=== PATIENT | male | born 1940 | race Caucasian/White ===

== ENCOUNTER → 2024-01-29 | Outpatient (CLI) | payer MEDICARE, OTHER | END | disposition home or self-care (01) | LOC: LAB 14:45 → LAB SHORT 14:45 | DX: D04.62 Carcinoma in situ of skin of left upper limb, including shoulder (principal); D09.8 Carcinoma in situ of other specified sites | CPT/HCPCS: 88305 ==

== ENCOUNTER → 2025-01-13 | Outpatient (CLI) | payer MEDICARE, OTHER ==
[2025-01-13 17:38] LABS: BASOPHILS ABSOLUTE AUTO 0.04 K/mm3 (0.00-0.23); BASOPHILS PERCENT AUTO 1 % (0-2); EOSINOPHILS ABSOLUTE AUTO 0.25 K/mm3 (0.00-0.68); EOSINOPHILS PERCENT AUTO 4 % (0-6); Hematocrit 35.4 % (37.0-53.0); IMMATURE GRAN ABSOLUTE AUTO 0.02 K/mm3 (0.00-0.10); IMMATURE GRAN PERCENT AUTO 0 % (0-1); LYMPHOCYTES ABSOLUTE AUTO 1.45 K/mm3 (0.84-5.20); LYMPHOCYTES PERCENT AUTO 23 % (21-46); MONOCYTES PERCENT AUTO 13 % (4-13); Mean Corpuscular HGB 35.4 pg (26.0-34.0); Mean Corpuscular HGB Conc 33.9 g/dL (31.5-36.5); Mean Corpuscular Volume 104 fL (80-100); Mean Platelet Volume 11.9 fL (9.1-12.4); NEUTROPHILS ABSOLUTE AUTO 3.75 K/mm3 (1.96-9.15); NEUTROPHILS PERCENT AUTO 59 % (41-73); Platelet Count 174 K/mm3 (150-400); RDW Coefficient Variation 13.2 % (11.7-14.2); RDW Standard Deviation 50.5 fL (35.1-46.3); Red Blood Cell Count 3.39 M/mm3 (4.30-5.90); White Blood Cell Count 6.31 K/mm3 (4.00-11.30)
== END ==
LOC: LAB 14:55 → LAB SHORT 14:55
PROVIDERS: Internal Medicine Hematology & Oncology
DX: D53.9 Nutritional anemia, unspecified (principal)
CPT/HCPCS: 85025

== ENCOUNTER 2025-10-07 12:02 | Emergency (ER) | payer MEDICARE, OTHER ==
[~2025-10-07] VITALS: Ht 182.9 cm; Wt 104.3 kg
[2025-10-07] MEDS ORDERED: FLUT.05NI (12:19)
[2025-10-07] MEDS ORDERED: TRAZ100 PO (12:19)
[2025-10-07] MEDS ORDERED: K-TAB ER20 ME2 PO (12:20)
[2025-10-07] MEDS ORDERED: ALLO300 PO (12:20)
[2025-10-07] MEDS ORDERED: METOPROLOL SUCC25 MG PO (12:20)
[2025-10-07] MEDS ORDERED: GABAPENTIN600 MG PO (12:20)
[2025-10-07] MEDS ORDERED: FUROSEMIDE40 MG PO (12:20)
[2025-10-07] MEDS ORDERED: LOSARTAN POTASS25 M2 PO (12:21)
[2025-10-07] MEDS ORDERED: ATOR10 PO (12:21)
[2025-10-07] MEDS ORDERED: DUTASTERIDE0.5 M3 PO (12:21)
[2025-10-07] MEDS ORDERED: ONDA4 PO (14:16)
== END 2025-10-07 14:37 | disposition home or self-care (01) ==
LOC: ER 12:02
DX: S00.03XA Contusion of scalp, initial encounter (principal); R00.1 Bradycardia, unspecified; W18.30XA Fall on same level, unspecified, initial encounter; Z79.51 Long term (current) use of inhaled steroids; Z79.899 Other long term (current) drug therapy
CPT/HCPCS: 70450; 90471; 90715; 93005; 93010; 99284-25